=== PATIENT | male | born 1970 | race African-American/Black ===

== ENCOUNTER 2019-08-13 12:43 | Emergency (ER) | payer OTHER ==
[~2019-08-13] VITALS: Ht 182.9 cm; Wt 104.3 kg
[2019-08-13 12:55] VITALS: BP 162/74
--- NOTE | 2019-08-13 13:22 | PHYS DOC ---
Adult General Chief Complaint Chief Complaint: LACERATION/AVULSION [facility] HPI Patient is a 49 year old male who presents with right hand lacerations. 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 No deficit, minimal bleeding. Tetanus is UTD He is resting in no distress. Seen by [facility] and sent to the ER (JULITA OGDEN APRN) Review of Systems Review of Systems Constitutional: Denies fever or chills [] Eyes: Denies change in visual acuity, redness, or eye pain [] HENT: Denies nasal congestion or sore throat [] Respiratory: Denies cough or shortness of breath [] Cardiovascular: No additional information not addressed in HPI [] Musculoskeletal: Denies back pain or joint pain [] Integument: Denies rash or skin lesions []Lacerations to fingers of right hand Neurologic: Denies headache, focal weakness or sensory changes [] Endocrine: Denies polyuria or polydipsia [] All other systems were reviewed and found to be within normal limits, except as documented in this note. (JULITA OGDEN APRN) Allergies Allergies Allergies Coded Allergies Type Severity Reaction Last Updated Verified No Known Drug Allergies 08/13/19 No (JAYSHREE SELF MD) Physical Exam Physical Exam Constitutional: Well developed, well nourished, no acute distress, non-toxic appearance. [] HENT: Normocephalic, atraumatic, bilateral external ears normal, oropharynx moist, no oral exudates, nose normal. [] Eyes: PERRLA, EOMI, conjunctiva normal, no discharge. [] Cardiovascular:Heart rate regular rhythm, no murmur [] Lungs & Thorax: Bilateral breath sounds clear to auscultation [] Skin: Warm, dry, no erythema, no rash. [] Back: No tenderness, no CVA tenderness. [] Extremities: no cyanosis, no clubbing, ROM intact, no edema. []Palmar surface #2 laceration, index finger, non bleeding well approximated superficial laceration, 1 cm, above the PIP joint, normal ROM, 5th finger proximal superficial 0.3mm laceration, normal ROM, intact pulses and distal cap refill Neurologic: Alert and oriented X 3, normal motor function, normal sensory function, no focal deficits noted. [] Psychologic: Affect normal, judgement normal, mood normal. [] (JULITA OGDEN APRN) Current Patient Data Vital Signs Vital Signs Date Time Temp Pulse Resp B/P (MAP) Pulse Ox O2 Delivery O2 Flow Rate FiO2 08/13/19 12:55 98.7 105 16 162/74 (103) 95 Room Air 98.7 (JAYSHREE SELF MD) EKG EKG [] (JULITA OGDEN APRN) Radiology/Procedures Radiology/Procedures Wound care Both wounds irrigated, dermabond and steri strips, no bleeding Bandage per nursing staff[] (JULITA OGDEN APRN) Impressions: Multiple right finger lacerations, superficial (JULITA OGDEN APRN) Course & Med Decision Making Course & Med Decision Making Pertinent Labs and Imaging studies reviewed. (See chart for details) []Superficial wounds Tetanus is UTD Minimal pain wound care provided, Dermabond and steri strips Stable for home care, educated on home care fu and reasons to return to the ER (JULITA OGDEN APRN) Course & Med Decision Making Staff Physician Addendum: I was working in the ER during the course of this patient's visit. I was available for consultation as needed, but I was not directly involved in the care of this patient. (JAYSHREE SELF MD) Dragon Disclaimer Dragon Disclaimer This electronic medical record was generated, in whole or in part, using a voice recognition dictation system. (JULITA OGDEN APRN) Departure Departure Impression: Primary Impression: Laceration of hand, right Disposition: 01 HOME, SELF-CARE Condition: IMPROVED Referrals: UNKNOWN PCP NAME (PCP) Patient Instructions: Laceration Care, Adult, [id number] Additional Instructions: Dermabond and steri strips Keep the wound clean and dry Hold pressure for bleeding Motrin or Tylenol for pain Return for any concerns or worsening symptoms JULITA OGDEN APRN Aug 13, 2019 13:22 JAYSHREE SELF MD Aug 14, 2019 08:09
== END 2019-08-13 13:31 | disposition home or self-care (01) ==
LOC: ER 12:43
DX: S61.210A Laceration without foreign body of right index finger without damage to nail, initial encounter (principal); W26.8XXA Contact with other sharp object(s), not elsewhere classified, initial encounter; Y93.89 Activity, other specified; Y92.239 Unspecified place in hospital as the place of occurrence of the external cause; Y99.0 Civilian activity done for income or pay
CPT/HCPCS: 12001; 99283

== ENCOUNTER → 2021-06-07 | Outpatient (CLI) | payer OTHER | LOC: LAB 16:42 | PROVIDERS: ATTEND Internal Medicine Pulmonary Disease | DX: Z20.822 Contact with and (suspected) exposure to COVID-19 (principal) | CPT/HCPCS: 87426; U0003; U0005 ==